=== PATIENT | male | born 1960 ===

== ENCOUNTER 2019-01-27 20:37 | Inpatient (IN) ==
[2019-01-27 22:34] LABS: Basophils # 0.1 K/mcL (0.0-0.2); Basophils % 1.1 %; Eosinophils # 0.2 K/mcL (0.0-0.6); Eosinophils % 3.4 %; Hematocrit 34.5 % (37.5-50.1); Hemoglobin 11.3 g/dL (12.9-16.9); Immature Granulocytes % 0.5 % (0-4); Lymphocytes # 1.9 K/mcL (0.6-4.6); Lymphocytes % 29.6 %; Mean Corpuscular HGB Conc 32.8 g/dL (31.6-35.5); Mean Corpuscular Hemoglobin 27.9 pg (28.0-33.3); Mean Corpuscular Volume 85.2 fL (83.0-100.0); Mean Platelet Volume 9.1 fL (9.4-12.4); Monocytes # 0.6 K/mcL (0.0-1.3); Monocytes % 9.7 %; Neutrophils # 3.6 K/mcL (1.6-8.9); Platelet Count 357 K/mcL (140-400); Red Blood Count 4.05 M/mcL (4.19-5.50); Red Cell Distribution Width 13.1 % (11.5-14.5); Segmented Neutrophils % 55.7 %; White Blood Count 6.4 K/mcL (4.3-11.1)
[2019-01-27 22:39] LABS: INR 1.5; Prothrombin Time 17.6 Seconds (9.4-12.1)
[2019-01-27 22:41] LABS: Activated Partial Thrombo Time 34.4 Seconds (26.0-36.0)
[2019-01-27 22:54] LABS: Alanine Aminotransferase 7 Units/L (7-52); Albumin 3.6 g/dL (3.5-5.7); Albumin/Globulin Ratio 1.1 (1.1-2.2); Alkaline Phosphatase 72 Units/L (34-104); Aspartate Amino Transferase 9 Units/L (13-39); BUN/Creatinine Ratio 22 (6-26); Bilirubin,Total 0.6 mg/dL (0.3-1.0); Blood Urea Nitrogen 21 mg/dL (6-20); Carbon Dioxide 26 mEq/L (23-29); Chloride 107 mEq/L (98-107); Globulin 3.2 g/dL (2.4-3.5); Glucose 94 mg/dL (70-105); Osmolality,Calculated 297 (280-300); Potassium 3.8 mEq/L (3.5-5.1); Sodium 142 mEq/L (136-145); Total Protein 6.8 g/dL (6.4-8.9); eGFR For African Americans > 60 (> 60); eGFR For Non-African Americans > 60 (> 60)
[2019-01-28 01:12] LABS: Bilirubin,Urine Negative (Negative); Blood,Urine Large (Negative); Clarity,Urine Turbid (Clear); Color,Urine Red (Yellow); Glucose,Urine (UA) Normal (Normal); Ketones,Urine 15 mg/dL (Negative); Leukocyte Esterase,Urine Large (Negative); Nitrite,Urine Negative (Negative); PH,Urine 6.5 pH Units (5.0-8.0); Protein,Urine >=300 mg/dL (Neg-Trace); Specific Gravity,Urine 1.018 (1.010-1.025); Urobilinogen,Urine Normal (Normal)
[2019-01-28 01:19] LABS: Bacteria,Urine Present per hpf (None-Few); RBC,Urine TNTC per hpf (0-3); WBC,Urine Present per hpf (0-3)
[2019-01-28] MEDS ORDERED: Ringers Solution, Lactated 1,000 ML IVC SCH (03:15)
[2019-01-28] MEDS ORDERED: *HR* Rivaroxaban 15 MG TABLET PO SCH (09:00)
[2019-01-28] MEDS: *HR* Enoxaparin 30 MG/0.3 ML SYRINGE SQ SCH ×2 (09:43→17:39)
[2019-01-28] MEDS: Finasteride 5 MG TABLET PO SCH (09:45)
[2019-01-29] MEDS: *HR* Enoxaparin 60 MG/0.6 ML SYRINGE SQ SCH ×2 (05:14→18:47)
[2019-01-29] MEDS: Acetaminophen 325 MG TABLET PO PRN ×2 (07:11→17:00)
[2019-01-29] MEDS: Finasteride 5 MG TABLET PO SCH (07:33)
[2019-01-29 09:34] LABS: Basophils # 0.1 K/mcL (0.0-0.2); Basophils % 1.1 %; Eosinophils # 0.4 K/mcL (0.0-0.6); Eosinophils % 5.4 %; Hematocrit 32.4 % (37.5-50.1); Hemoglobin 10.5 g/dL (12.9-16.9); Immature Granulocytes % 0.5 % (0-4); Lymphocytes # 2.5 K/mcL (0.6-4.6); Lymphocytes % 38.5 %; Mean Corpuscular HGB Conc 32.4 g/dL (31.6-35.5); Mean Corpuscular Hemoglobin 27.5 pg (28.0-33.3); Mean Corpuscular Volume 84.8 fL (83.0-100.0); Mean Platelet Volume 9.1 fL (9.4-12.4); Monocytes # 0.6 K/mcL (0.0-1.3); Monocytes % 9.4 %; Neutrophils # 2.9 K/mcL (1.6-8.9); Platelet Count 341 K/mcL (140-400); Red Blood Count 3.82 M/mcL (4.19-5.50); Segmented Neutrophils % 45.1 %; White Blood Count 6.5 K/mcL (4.3-11.1)
[2019-01-29 09:57] LABS: BUN/Creatinine Ratio 15 (6-26); Blood Urea Nitrogen 13 mg/dL (6-20); Calcium 8.2 mg/dL (8.6-10.3); Carbon Dioxide 29 mEq/L (23-29); Chloride 106 mEq/L (98-107); Glucose 98 mg/dL (70-105); Osmolality,Calculated 288 (280-300); Potassium 3.7 mEq/L (3.5-5.1); Sodium 139 mEq/L (136-145); eGFR For African Americans > 60 (> 60); eGFR For Non-African Americans > 60 (> 60)
[2019-01-30 05:27] LABS: Basophils # 0.1 K/mcL (0.0-0.2); Eosinophils # 0.4 K/mcL (0.0-0.6); Eosinophils % 5.8 %; Hematocrit 31.1 % (37.5-50.1); Immature Granulocytes % 0.6 % (0-4); Lymphocytes # 2.5 K/mcL (0.6-4.6); Lymphocytes % 40.1 %; Mean Corpuscular HGB Conc 32.2 g/dL (31.6-35.5); Mean Corpuscular Hemoglobin 27.1 pg (28.0-33.3); Mean Corpuscular Volume 84.3 fL (83.0-100.0); Monocytes # 0.5 K/mcL (0.0-1.3); Monocytes % 8.4 %; Neutrophils # 2.7 K/mcL (1.6-8.9); Platelet Count 343 K/mcL (140-400); Red Blood Count 3.69 M/mcL (4.19-5.50); Segmented Neutrophils % 44.1 %; White Blood Count 6.2 K/mcL (4.3-11.1)
[2019-01-30] MEDS: *HR* Enoxaparin 60 MG/0.6 ML SYRINGE SQ SCH ×2 (05:54→18:24)
[2019-01-30 05:55] LABS: BUN/Creatinine Ratio 16 (6-26); Blood Urea Nitrogen 15 mg/dL (6-20); Calcium 8.4 mg/dL (8.6-10.3); Carbon Dioxide 29 mEq/L (23-29); Chloride 104 mEq/L (98-107); Glucose 101 mg/dL (70-105); Magnesium 2.1 mg/dL (1.6-2.6); Osmolality,Calculated 293 (280-300); Phosphorous 3.3 mg/dL (2.7-4.5); Potassium 4.3 mEq/L (3.5-5.1); Sodium 141 mEq/L (136-145); eGFR For African Americans > 60 (> 60); eGFR For Non-African Americans > 60 (> 60)
[2019-01-30] MEDS ORDERED: Apixaban 5 MG TABLET PO SCH (09:00)
[2019-01-30] MEDS: Finasteride 5 MG TABLET PO SCH (11:30)
[2019-01-30] MEDS ORDERED: Milk and Molasses Enema 200 ML RC ONE (20:00)
[2019-01-31 01:51] LABS: Basophils # 0.1 K/mcL (0.0-0.2); Basophils % 0.8 %; Eosinophils # 0.4 K/mcL (0.0-0.6); Eosinophils % 5.7 %; Hematocrit 32.6 % (37.5-50.1); Hemoglobin 10.5 g/dL (12.9-16.9); Immature Granulocytes % 0.7 % (0-4); Lymphocytes # 2.6 K/mcL (0.6-4.6); Lymphocytes % 35.3 %; Mean Corpuscular HGB Conc 32.2 g/dL (31.6-35.5); Mean Corpuscular Hemoglobin 27.3 pg (28.0-33.3); Mean Corpuscular Volume 84.9 fL (83.0-100.0); Mean Platelet Volume 9.4 fL (9.4-12.4); Monocytes # 0.7 K/mcL (0.0-1.3); Monocytes % 8.8 %; Neutrophils # 3.6 K/mcL (1.6-8.9); Platelet Count 386 K/mcL (140-400); Red Blood Count 3.84 M/mcL (4.19-5.50); Segmented Neutrophils % 48.7 %; White Blood Count 7.4 K/mcL (4.3-11.1)
[2019-01-31 02:00] LABS: BUN/Creatinine Ratio 15 (6-26); Blood Urea Nitrogen 14 mg/dL (6-20); Calcium 8.4 mg/dL (8.6-10.3); Carbon Dioxide 29 mEq/L (23-29); Chloride 103 mEq/L (98-107); Glucose 96 mg/dL (70-105); Magnesium 2.2 mg/dL (1.6-2.6); Osmolality,Calculated 282 (280-300); Phosphorous 3.1 mg/dL (2.7-4.5); Potassium 4.6 mEq/L (3.5-5.1); Sodium 136 mEq/L (136-145); eGFR For African Americans > 60 (> 60); eGFR For Non-African Americans > 60 (> 60)
[2019-01-31] MEDS: *HR* Enoxaparin 60 MG/0.6 ML SYRINGE SQ SCH (05:40)
[2019-01-31] MEDS: Finasteride 5 MG TABLET PO SCH (08:34)
[2019-01-31] MEDS ORDERED: *HR* Heparin 5,000 UNIT/ML VIAL IVP PRN ×2 (10:07)
[2019-01-31] MEDS ORDERED: *HR* Heparin 5,000 UNIT/ML VIAL IVP ONE (10:07)
[2019-01-31] MEDS ORDERED: Heparin 25,000 UNIT/250 ML D5W 25,000 UNIT/250 ML IV.SOLN IVC SCH (10:15)
[2019-01-31 12:40] LABS: Hematocrit 34.3 % (37.5-50.1); Hemoglobin 11.1 g/dL (12.9-16.9); Mean Corpuscular HGB Conc 32.4 g/dL (31.6-35.5); Mean Corpuscular Hemoglobin 27.5 pg (28.0-33.3); Mean Corpuscular Volume 85.1 fL (83.0-100.0); Mean Platelet Volume 8.8 fL (9.4-12.4); Platelet Count 387 K/mcL (140-400); Red Blood Count 4.03 M/mcL (4.19-5.50); Red Cell Distribution Width 12.9 % (11.5-14.5); White Blood Count 6.7 K/mcL (4.3-11.1)
[2019-01-31 12:46] LABS: Heparin anti-factor XA UFH 0.04 IU/mL (0.30-0.70); Prothrombin Time 11.5 Seconds (9.4-12.1)
[2019-01-31] MEDS: Acetaminophen 325 MG TABLET PO PRN (13:08)
[2019-02-01 02:34] LABS: Basophils # 0.1 K/mcL (0.0-0.2); Basophils % 0.9 %; Eosinophils # 0.5 K/mcL (0.0-0.6); Eosinophils % 6.3 %; Hematocrit 32.1 % (37.5-50.1); Hemoglobin 10.3 g/dL (12.9-16.9); Immature Granulocytes % 1.1 % (0-4); Lymphocytes # 2.5 K/mcL (0.6-4.6); Lymphocytes % 31.1 %; Mean Corpuscular HGB Conc 32.1 g/dL (31.6-35.5); Mean Corpuscular Hemoglobin 27.2 pg (28.0-33.3); Mean Corpuscular Volume 84.9 fL (83.0-100.0); Mean Platelet Volume 9.1 fL (9.4-12.4); Monocytes # 0.7 K/mcL (0.0-1.3); Monocytes % 8.5 %; Neutrophils # 4.2 K/mcL (1.6-8.9); Platelet Count 374 K/mcL (140-400); Red Blood Count 3.78 M/mcL (4.19-5.50); Red Cell Distribution Width 13.1 % (11.5-14.5); Segmented Neutrophils % 52.1 %; White Blood Count 8.1 K/mcL (4.3-11.1)
[2019-02-01 02:58] LABS: BUN/Creatinine Ratio 25 (6-26); Blood Urea Nitrogen 24 mg/dL (6-20); Calcium 8.2 mg/dL (8.6-10.3); Carbon Dioxide 27 mEq/L (23-29); Chloride 103 mEq/L (98-107); Glucose 107 mg/dL (70-105); Magnesium 2.1 mg/dL (1.6-2.6); Osmolality,Calculated 287 (280-300); Phosphorous 3.7 mg/dL (2.7-4.5); Potassium 4.1 mEq/L (3.5-5.1); Sodium 136 mEq/L (136-145); eGFR For African Americans > 60 (> 60); eGFR For Non-African Americans > 60 (> 60)
[2019-02-01] MEDS: Finasteride 5 MG TABLET PO SCH (07:50)
[2019-02-01] MEDS: Apixaban 5 MG TABLET PO SCH ×2 (10:31→20:35)
[2019-02-01] MEDS: *HR* OxyCODONE/APAP 5/325 TABLET PO PRN (15:51)
[2019-02-02 03:08] LABS: Basophils # 0.1 K/mcL (0.0-0.2); Basophils % 0.8 %; Eosinophils # 0.4 K/mcL (0.0-0.6); Eosinophils % 4.9 %; Hematocrit 34.3 % (37.5-50.1); Hemoglobin 10.6 g/dL (12.9-16.9); Immature Granulocytes % 1.5 % (0-4); Lymphocytes # 2.1 K/mcL (0.6-4.6); Lymphocytes % 23.4 %; Mean Corpuscular HGB Conc 30.9 g/dL (31.6-35.5); Mean Corpuscular Hemoglobin 27.2 pg (28.0-33.3); Mean Corpuscular Volume 88.2 fL (83.0-100.0); Mean Platelet Volume 8.9 fL (9.4-12.4); Monocytes # 0.8 K/mcL (0.0-1.3); Monocytes % 8.9 %; Neutrophils # 5.4 K/mcL (1.6-8.9); Platelet Count 359 K/mcL (140-400); Red Blood Count 3.89 M/mcL (4.19-5.50); Red Cell Distribution Width 13.3 % (11.5-14.5); Segmented Neutrophils % 60.5 %
[2019-02-02 03:22] LABS: BUN/Creatinine Ratio 24 (6-26); Blood Urea Nitrogen 23 mg/dL (6-20); Calcium 8.5 mg/dL (8.6-10.3); Carbon Dioxide 31 mEq/L (23-29); Chloride 104 mEq/L (98-107); Glucose 103 mg/dL (70-105); Magnesium 2.2 mg/dL (1.6-2.6); Osmolality,Calculated 290 (280-300); Phosphorous 3.6 mg/dL (2.7-4.5); Potassium 4.4 mEq/L (3.5-5.1); Sodium 138 mEq/L (136-145); eGFR For African Americans > 60 (> 60); eGFR For Non-African Americans > 60 (> 60)
[2019-02-02] MEDS: Acetaminophen 325 MG TABLET PO PRN (09:31)
[2019-02-02] MEDS: Finasteride 5 MG TABLET PO SCH (09:32)
[2019-02-02] MEDS: Apixaban 5 MG TABLET PO SCH ×2 (09:32→20:10)
[2019-02-03 05:58] LABS: Basophils # 0.1 K/mcL (0.0-0.2); Basophils % 0.9 %; Eosinophils # 0.3 K/mcL (0.0-0.6); Eosinophils % 3.2 %; Hematocrit 35.2 % (37.5-50.1); Immature Granulocytes % 1.1 % (0-4); Lymphocytes # 2.1 K/mcL (0.6-4.6); Lymphocytes % 23.6 %; Mean Corpuscular HGB Conc 31.3 g/dL (31.6-35.5); Mean Corpuscular Hemoglobin 27.1 pg (28.0-33.3); Mean Corpuscular Volume 86.7 fL (83.0-100.0); Mean Platelet Volume 9.3 fL (9.4-12.4); Monocytes # 0.9 K/mcL (0.0-1.3); Monocytes % 9.8 %; Neutrophils # 5.5 K/mcL (1.6-8.9); Platelet Count 436 K/mcL (140-400); Red Blood Count 4.06 M/mcL (4.19-5.50); Red Cell Distribution Width 13.7 % (11.5-14.5); Segmented Neutrophils % 61.4 %
[2019-02-03 06:16] LABS: BUN/Creatinine Ratio 22 (6-26); Blood Urea Nitrogen 26 mg/dL (6-20); Carbon Dioxide 28 mEq/L (23-29); Chloride 102 mEq/L (98-107); Glucose 122 mg/dL (70-105); Magnesium 2.1 mg/dL (1.6-2.6); Osmolality,Calculated 294 (280-300); Phosphorous 2.8 mg/dL (2.7-4.5); Potassium 3.9 mEq/L (3.5-5.1); Sodium 139 mEq/L (136-145); eGFR For African Americans > 60 (> 60); eGFR For Non-African Americans > 60 (> 60)
[2019-02-03] MEDS: *HR* OxyCODONE/APAP 5/325 TABLET PO PRN (07:49)
[2019-02-03] MEDS: Apixaban 5 MG TABLET PO SCH ×2 (11:33→20:31)
[2019-02-03] MEDS: Finasteride 5 MG TABLET PO SCH (11:33)
[2019-02-04] MEDS: *HR* OxyCODONE/APAP 5/325 TABLET PO PRN ×5 (02:08→18:33)
[2019-02-04 07:28] LABS: Basophils # 0.1 K/mcL (0.0-0.2); Basophils % 0.7 %; Eosinophils # 0.3 K/mcL (0.0-0.6); Eosinophils % 3.6 %; Hematocrit 34.3 % (37.5-50.1); Hemoglobin 10.5 g/dL (12.9-16.9); Immature Granulocytes % 1.5 % (0-4); Lymphocytes # 2.7 K/mcL (0.6-4.6); Lymphocytes % 28.4 %; Mean Corpuscular HGB Conc 30.6 g/dL (31.6-35.5); Mean Corpuscular Hemoglobin 27.6 pg (28.0-33.3); Mean Platelet Volume 9.1 fL (9.4-12.4); Monocytes % 10.9 %; Neutrophils # 5.1 K/mcL (1.6-8.9); Platelet Count 388 K/mcL (140-400); Red Blood Count 3.81 M/mcL (4.19-5.50); Red Cell Distribution Width 13.7 % (11.5-14.5); Segmented Neutrophils % 54.9 %; White Blood Count 9.4 K/mcL (4.3-11.1)
[2019-02-04 07:45] LABS: BUN/Creatinine Ratio 24 (6-26); Blood Urea Nitrogen 26 mg/dL (6-20); Calcium 8.9 mg/dL (8.6-10.3); Carbon Dioxide 29 mEq/L (23-29); Chloride 102 mEq/L (98-107); Glucose 123 mg/dL (70-105); Magnesium 2.1 mg/dL (1.6-2.6); Osmolality,Calculated 296 (280-300); Phosphorous 3.2 mg/dL (2.7-4.5); Potassium 4.1 mEq/L (3.5-5.1); Sodium 140 mEq/L (136-145); eGFR For African Americans > 60 (> 60); eGFR For Non-African Americans > 60 (> 60)
[2019-02-04] MEDS: Finasteride 5 MG TABLET PO SCH (09:51)
[2019-02-04] MEDS: Apixaban 5 MG TABLET PO SCH ×2 (09:51→22:09)
[2019-02-05] MEDS: Finasteride 5 MG TABLET PO SCH ×2 (10:25→10:34)
[2019-02-05] MEDS: *HR* Enoxaparin 60 MG/0.6 ML SYRINGE SQ SCH ×4 (10:26→18:42)
[2019-02-06] MEDS: *HR* Enoxaparin 60 MG/0.6 ML SYRINGE SQ SCH (06:02)
[2019-02-06] MEDS: Finasteride 5 MG TABLET PO SCH (12:21)
[2019-02-06] MEDS: Apixaban 5 MG TABLET PO SCH ×3 (13:49→22:28)
[2019-02-07] MEDS: Finasteride 5 MG TABLET PO SCH (11:37)
[2019-02-07] MEDS: Apixaban 5 MG TABLET PO SCH ×2 (11:37→21:51)
[2019-02-08] MEDS: Apixaban 5 MG TABLET PO SCH ×2 (13:29→22:18)
[2019-02-08] MEDS: Finasteride 5 MG TABLET PO SCH (13:29)
[2019-02-09] MEDS: Apixaban 5 MG TABLET PO SCH ×2 (08:18→20:40)
[2019-02-09] MEDS: Finasteride 5 MG TABLET PO SCH (08:18)
[2019-02-10] MEDS: Apixaban 5 MG TABLET PO SCH ×2 (08:35→20:23)
[2019-02-10] MEDS: Finasteride 5 MG TABLET PO SCH (08:35)
[2019-02-11] MEDS: Finasteride 5 MG TABLET PO SCH (08:07)
[2019-02-11] MEDS: Apixaban 5 MG TABLET PO SCH ×2 (08:07→21:31)
[2019-02-12] MEDS: Finasteride 5 MG TABLET PO SCH (10:18)
[2019-02-12] MEDS: Apixaban 5 MG TABLET PO SCH ×2 (10:26→22:20)
[2019-02-13] MEDS: Finasteride 5 MG TABLET PO SCH (08:53)
[2019-02-13] MEDS: Apixaban 5 MG TABLET PO SCH (08:53)
[2019-02-13] MEDS: Acetaminophen 325 MG TABLET PO PRN (20:12)
[2019-02-14] MEDS: Finasteride 5 MG TABLET PO SCH (10:11)
[2019-02-14] MEDS: Apixaban 5 MG TABLET PO SCH (21:59)
[2019-02-14] MEDS: Acetaminophen 325 MG TABLET PO PRN (22:21)
[2019-02-15] MEDS: Finasteride 5 MG TABLET PO SCH (10:18)
[2019-02-15] MEDS: Apixaban 5 MG TABLET PO SCH ×2 (10:19→20:38)
[2019-02-16] MEDS: Apixaban 5 MG TABLET PO SCH (10:03)
[2019-02-16] MEDS: Finasteride 5 MG TABLET PO SCH (10:03)
[2019-02-16 17:14] VITALS: BP 135/84
== END 2019-02-16 17:55 | DRG 300 ==
LOC: 3NENU 20:37 → EMEROOARM 20:37 → 3NENU 01-28 02:02 → SUATTDRO 01-29 14:18 → CDU 01-31 11:12 → 3ANU 01-31 15:08
PROVIDERS: ADMIT Internal Medicine; ATTEND Internal Medicine